=== PATIENT | female | born 1990 | race Caucasian/White ===

== ENCOUNTER 2023-02-25 18:17 | Emergency (ER) | payer OTHER ==
[~2023-02-25] VITALS: Ht 175.3 cm; Wt 84.1 kg
[~2023-02-25 18:17] MED LIST: NORCO 325 MG-51 TAB PO
[2023-02-25 19:51] VITALS: BP 128/87; PULSE 79; TEMP 97.9
== END 2023-02-25 19:51 | disposition home or self-care (01) ==
LOC: COL.ER 18:17
DX: S01.111A Laceration without foreign body of right eyelid and periocular area, initial encounter (principal); Z23 Encounter for immunization; W21.07XA Struck by softball, initial encounter; Y93.64 Activity, baseball